=== PATIENT | female | born 1950 | race Caucasian/White ===

== ENCOUNTER → 2016-05-17 | Outpatient (CLI) | payer OTHER ==
[~2016-05-17] MED LIST: ACET-1138 PO; ADVIN10/60 INH; ALBUAER2 INH; ASPEC325 PO; NAPR1TAB9 PO; PRLSR20 PO; TRIA1SPR4 NAE; ULT50X PO; VOLTAREN GEL TOP
--- NOTE | 2016-05-17 12:27 | DIAGNOSTIC IMAGING REPORT ---
CHEST 2 VIEWS ROUTINE CLINICAL HISTORY: R05 [id number] dyspnea COMPARISON STUDY: 06/23/2015 FINDINGS: Unchanging thoracic scoliosis. Lungs are clear. Diaphragms are smooth. No evidence for cardiac enlargement. IMPRESSION: No acute process. Chronic change. Electronically signed by: Bruce Rosas M.D. 05/17/2016 12:25 PM Dictated Date/Time: 05/17/2016 12:25 PM
== END | disposition home or self-care (01) ==
LOC: C.RAD1850 12:08
PROVIDERS: ATTEND Nurse Practitioner
DX: R05 Cough (principal)

== ENCOUNTER → 2016-12-24 | Outpatient (CLI) | payer OTHER ==
[2016-12-24 09:40] LABS: BASO % 0.5 %; BASO ABS # 0.03 K/uL (0-0.2); COMPLETE YES; EOS % 6.4 %; HEMATOCRIT 42.1 % (37-47); LYMPH % 34.9 %; LYMPH ABS # 1.96 K/uL (1.2-3.4); MEAN CELL VOLUME 88.4 fL (80-100); MEAN CORPUSCULAR HEMOGLOBIN 31.1 pg (25-34); MEAN CORPUSCULAR HGB CONC 35.2 g/dl (32-36); MEAN PLATELET VOLUME 10.3 fL (7.4-10.4); MONO % 10.1 %; NEUT % 48.1 %; PLATELET COUNT 284 K/uL (130-400); RED BLOOD COUNT 4.76 M/uL (4.2-5.4); WHITE BLOOD COUNT 5.62 K/uL (4.8-10.8)
[2016-12-24 09:54] LABS: URINE APPEARANCE CLEAR (CLEAR); URINE BILIRUBIN NEG (NEG); URINE COLOR YELLOW; URINE EPITHELIAL CELL AUTO >30 /lpf (0-5); URINE NITRITE NEG (NEG); URINE PH 5.5 (4.5-7.5); URINE SPECIFIC GRAVITY 1.021 (1.000-1.030); UROBILINOGEN NEG (NEG); ZZUR CULT IF INDIC CLEAN CATCH NO
[2016-12-24 09:57] LABS: MANUAL MICROSCOPIC REQUIRED? NO; REVIEW REQ? NO
[2016-12-24 10:07] LABS: BLOOD UREA NITROGEN 18 mg/dl (7-18); BUN/CREATININE RATIO 24.9 (10-20); CALCIUM 9.2 mg/dl (8.5-10.1); CARBON DIOXIDE 27 mmol/L (21-32); CHLORIDE 107 mmol/L (98-107); CREATININE 0.71 mg/dl (0.60-1.20); GLUCOSE 87 mg/dl (70-99); HDL CHOLESTEROL 86 mg/dl; POTASSIUM 3.9 mmol/L (3.5-5.1); SODIUM 139 mmol/L (136-145); TRIGLYCERIDES 75 mg/dl (0-150); VERY LOW DENSITY LIPOPROT CALC 15 mg/dl
[2016-12-24 10:16] LABS: ALB/GLOB RATIO 0.9 (0.9-2); ALKALINE PHOSPHATASE 111 U/L (45-117); ALT/SGPT 22 U/L (12-78); AST/SGOT 16 U/L (15-37); CHOLESTEROL 194 mg/dl (0-200); CHOLESTEROL/HDL RATIO 2.3; LDL CHOLESTEROL CALCULATED 93 mg/dl
== END | disposition home or self-care (01) ==
LOC: C.LAB1850 06:59
PROVIDERS: ATTEND Physician Assistant Medical
DX: R60.9 Edema, unspecified (principal); E05.00 Thyrotoxicosis with diffuse goiter without thyrotoxic crisis or storm

== ENCOUNTER → 2016-12-28 | Outpatient (CLI) | payer OTHER ==
--- NOTE | 2016-12-28 15:16 | MAMMOGRAPHY REPORT ---
BILATERAL DIGITAL SCREENING MAMMOGRAM WITH CAD: 12/28/2016 CLINICAL HISTORY: Routine screening. Patient has no complaints. TECHNIQUE: Bilateral CC and MLO views were obtained. Current study was also evaluated with a Compute r Aided Detection (CAD) system. COMPARISON: Comparison is made to exams dated: 12/23/2015 mammogram, 12/17/2014 mammogram, 12/11/2013 mammogram, 12/03/2011 mammogram, 11/20/2010 mammogram - [facility], and 11/18/2008. BREAST COMPOSITION: The tissue of both breasts is almost entirely fatty. FINDINGS: There are a few benign calcifications bilaterally. No suspicious mass, architectural disto rtion or cluster of suspicious microcalcifications is seen. IMPRESSION: ACR BI-RADS CATEGORY 1: NEGATIVE There is no mammographic evidence of malignancy. A 1 year screening mammogram is recommended. The pa tient will receive written notification of the results. Approximately 10% of breast cancers are not detected with mammography. A negative mammographic report should not delay biopsy if a clinically suggestive mass is present. Stacey Estrada M.D. ay/:12/28/2016 08:04:33 Qc Lab Technician: Leona Laurent RT(R)(M), [facility] letter sent: Normal 1/2 BI-RADS Code: ACR BI-RADS Category 1: Negative
== END | disposition home or self-care (01) ==
LOC: C.MAMM 07:18
PROVIDERS: ATTEND Obstetrics & Gynecology
DX: Z12.31 Encounter for screening mammogram for malignant neoplasm of breast (principal)

== ENCOUNTER → 2017-01-20 | Outpatient (CLI) | payer OTHER | END | disposition home or self-care (01) | LOC: C.LABSPEC 16:57 | PROVIDERS: ATTEND Podiatrist Primary Podiatric Medicine | DX: B35.1 Tinea unguium (principal) ==

== ENCOUNTER 2018-08-28 12:10 | Observation (INO) ==
--- OUTSIDE RECORDS SUMMARY | 2018-08-28 12:13 | External Medical Summary | Continuity of Care Document ---
:1950 Author Name Angel Ahumada, Provider Address Unavailable Unavailable , Care Team Providers Name Role Phone Simon [email or web address] [place] HERNANDEZ Unavailable Unavailable Unavailable Unavailable Unavailable Problems Edema (782.3) (R60.9) Postmenopausal atrophic vaginitis (627.3) (N95.2) Leg cramps (729.82) (R25.2) Anxiety (300.00) (F41.9) Allergic rhinitis (477.9) (J30.9) Asthma (493.90) (J45.909) Gastroesophageal reflux disease (530.81) (K21.9) Abdominal pain, RLQ (right lower quadrant) (789.03) (R10.31) 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 ELEANOR Hennessy Quantity: 30 Refills: 5 Fluticasone-Salmeterol 100-50 MCG/DOSE I nhalation Aerosol Powder Breath Activated; INHALE ONE DOSE BY MOUTH TWICE DAILY RINSE MOUTH AFTER USE CAR Hennessy Start: 01-Nov-2016 Quantity: 1 Refills: 5 Levalbuterol HCl - 1.25 MG/3ML Inhalatio n Nebulization Solution; USE 1 VIAL IN NEBULIZER EVERY 8 HOURS NEEDED. ELEANOR Hennessy Start: 24-Mar-2010 Quantity: 1 3 ML Plas Cont (24 P las Conts) Refills: 1 Nasacort Allergy 24HR AERO Refills: 0 Ventolin HFA 108 (90 Base) MCG/ACT Inhal ation Aerosol Solution; INHALE 1 TO 2 PUFFS EVERY 4 TO 6 HOURS NEEDED. ELEANOR Hennessy Start: 19-Jun-2012 Quantity: 1 18 GM Inhaler Refills: 3 Procedures History of Total Abdominal Hysterectomy With Removal Of Both Status: Completed Ovaries History of Laparoscopy (Diagnostic) Stat us: Completed History of Biopsy Of Cervix Status: Comp leted History of Oral Surgery Tooth Extraction Status: Completed History of Neuroplasty Decompression Median Nerve At Carpal Status: Completed Tunnel History of Foot Surgery Status: Complete d History of Complete Colonoscopy Status: Completed History of Cholecystectomy Status: Compl eted Immunizations Tdap (Adacel) On: 11-Dec-2004 Pneumococcal polysaccharide vaccine, 23 valent On: 2007 Fluzone High-Dose Intramuscular Suspension On: 03-Jan-2015 1 5:44 Lot #: [id number], [employer] PA[employer]UR Zoster (Zostavax) On: 10-Jun-2015 Shingrix 50 MCG Intramuscular Suspension Reconstituted On: Shingrix 50 MCG Intramuscular Suspension Reconstituted On: 11-Jul-2018 Family History uncle Family history of Colon Cancer (V16.0) Status: Active Family history of Aortic Aneurysm Status: Active Grandfather Family history of Colon Cancer (V16.0) Status: Active aunt Family history of Colon Cancer (V16.0) Status: Active Mother Family history of Aortic Aneurysm Status: Active Grandmother Family history of Aortic Aneurysm Status: Active Father Family history of Chronic Obstructive Pulmonary Disease Stat us: Active Sister Family history of Chronic Obstructive Pulmonary Disease Stat us: Active Social History - Smoking Status Unknown if ever smoked Never smoker Plan of Treatment Planned Encounters Appointment; Simon Hernandez M.D. Start: 25-Dec-2018 13:45 Requ est Planned Observations Planned Goals not documented Results No Known Results Results not documented Encounters Appointment; Summer Hennessy PA-C 29-Jun-2018 10:00 Encounter Diagnosis: Problem not documented Appointment; Summer Hennessy PA-C 21-Feb-2018 8:30 Encounter Diagnosis: Problem not documented Appointment; Simon Hernandez M.D. 21-Dec-2017 14:45 Encounter Diagnosis: Problem not documented Appointment; Summer Hennessy PA-C 17-Nov-2017 11:00 Encounter Diagnosis: Problem not documented Appointment; Summer Hennessy PA-C 11-Aug-2017 9:00 Encounter Diagnosis: Problem not documented Appointment; Simon Hernandez M.D. 27-Dec-2016 14:30 Encounter Diagnosis: Problem not documented Appointment; Tuesday, Provider 18-Dec-2016 8:30 Encounter Diagnosis: Problem not documented Appointment; Summer Hennessy PA-C 01-Nov-2016 15:00 Encounter Diagnosis: Problem not documented Appointment; Jackie Velasquez PA-C 04-Oct-2016 9:40 Encounter Diagnosis: Problem not documented Appointment; Simon Hernandez M.D. 09-Sep-2016 13:00 Encounter Diagnosis: Problem not documented Appointment; Summer Hennessy PA-C 06-Sep-2016 13:00 Encounter Diagnosis: Problem not documented Appointment; Simon Hernandez M.D. 25-Dec-2018 13:45 Encounter Diagnosis: Problem not documented
--- NOTE | 2018-08-28 12:56 | XRay Report ---
SINGLE VIEW CHEST CLINICAL HISTORY: Atypical chest pain. FINDINGS: An AP, portable, upright chest radiograph is compared to study dated 05/17/2016. The cardiom ediastinal silhouette is unremarkable noting atherosclerotic calcification of the thoracic aorta. The lungs and pleural spaces are clear. No pneumothorax is seen. The skeletal structures are osteopenic. Degenerative change and scoliosis are noted in the thoracic spine. The bony thorax is grossly intact . IMPRESSION: No active disease in the chest. Electronically signed by: David Mercedes M.D. 08/28/2018 12:54 PM
[2018-08-28 13:11] LABS: Basophils # (auto) 0.03 K/uL (0-0.2); Basophils % (auto) 0.5 %; Eosinophils # (auto) 0.17 K/uL (0-0.5); Hematocrit (blood only) 41.9 % (37-47); Hemoglobin 14.8 g/dL (12.0-16.0); Immature Granulocytes # (auto) 0.01 K/uL (0.00-0.02); Immature Granulocytes % (auto) 0.2 %; Lymphocytes # (auto) 1.71 K/uL (1.2-3.4); Lymphocytes % (auto) 30.6 %; Mean Corpuscular Hgb Conc 35.3 g/dL (32-36); Mean Corpuscular Volume 86.2 fL (80-100); Mean Platelet Volume 10.6 fL (7.4-10.4); Monocytes # (auto) 0.52 K/uL (0.11-0.59); Monocytes % (auto) 9.3 %; Neutrophils # (auto) 3.14 K/uL (1.4-6.5); Neutrophils % (auto) 56.4 %; Platelet Count 264 K/uL (130-400); RDW Coefficient of Variation 12.9 % (11.5-14.5); RDW Standard Deviation 40.9 fL (36.4-46.3); Red Blood Count 4.86 M/uL (4.2-5.4); White Blood Count 5.58 K/uL (4.8-10.8)
[2018-08-28 13:23] LABS: Partial Thromboplastin Time 26.1 Seconds (21.0-31.0); Prothrombin Time 10.4 Seconds (9.0-12.0)
[2018-08-28 13:27] LABS: Alanine Aminotransferase 26 U/L (12-78); Albumin Globulin Ratio 0.9 (0.9-2); Albumin Level 3.7 gm/dl (3.4-5.0); Alkaline Phosphatase 107 U/L (45-117); BUN Creatinine Ratio 15.2 (10-20); Bilirubin,Total 0.6 mg/dl (0.2-1); Blood Urea Nitrogen 14 mg/dl (7-18); Calcium 9.2 mg/dl (8.5-10.1); Carbon Dioxide 24 mmol/L (21-32); Chloride 106 mmol/L (98-107); Creatinine Clr Calc Pharmacy 65.3 ml/min; Est GFR (African American) 76.1; Est GFR (Non-African American) 65.7; Globulin 4.2 gm/dl (2.5-4.0); Glucose 93 mg/dl (70-99); Phosphorus 3.6 mg/dl (2.5-4.9); Sodium 136 mmol/L (136-145); Total Protein 7.9 gm/dl (6.4-8.2); Troponin I < 0.015 ng/ml (0-0.045)
--- NOTE | 2018-08-28 13:47 | Emergency Department Note ---
Entered by Reese Rodriguez acting as a scribe for Capo Palacios MD History of Present Illness General Chief complaint: Chest Pain Stated complaint: chest pain Time Seen by Provider: 08/28/18 12:57 Source: patient History of Present Illness Onset (ago): hour(s) 1 Location: chest Radiation: extremity Pain Consistency: + now resolved Relieved By: + rest Associated symptoms: + diaphoresis and + other (denies nausea) The patient is a 68 year old female who presents to the Emergency Room with complaints of a currently resolved 3-6 minute episode of left-sided chest pain occurring about one hour ago. The patient reports that while setting up for a of someone she did not personally know, she suddenly developed the pain, became diaphoretic, and felt discomfort in her left arm. She did not have any nausea. She reports that her pain resolved after sitting down and trying to relax, and she has not had any symptoms since that time. She denies a history of similar symptoms or anxiety. She does note a history of reflux but states that her symptoms today were different. She denies a history of diabetes, hypertension, or smoking. She states that her mother was a non-smoker and had a heart attack in her 70s as well as hypertension. The patient states that she felt healthy prior to today aside from being tired. She denies recent changes in activity aside from working outside for a short period of time. She states that she had a cardiac stress test in 2015 that was unremarkable. Home Medications Home Medications Medication Instructions Recorded Confirmed Type albuterol sulfate [Ventolin HFA] 2 puff INHALATION Q4H PRN 08/28/18 08/28/18 H istory fluticasone propion-salmeterol 1 puff INHALATION QAM 08/28/18 08/28/18 History [Advair Diskus] omeprazole 20 mg PO QAM 08/28/18 08/28/18 History triamcinolone acetonide [Nasacort] 1 spray INTRANASAL QAM 08/28/18 08/28/18 History Allergies Allergy/AdvReac Type Severity Reaction Status Date / Time levofloxacin Allergy Intermediate double Verified 08/28/18 14:27 vision tetracycline Allergy Intermediate HIVES Verified 08/28/18 14:27 ondansetron [From Zofran] AdvReac Severe Hives Unverified 08/28/18 14:27 codeine AdvReac Mild NAUSEA AND Verified 08/28/18 14:27 VOMITING morphine AdvReac Mild N/V Verified 08/28/18 14:27 oxycodone AdvReac Mild NAUSEA AND Unverified 08/28/18 14:27 VOMITING Past Med/Surg History Medical History Substernal chest pain (Acute) Asthma (Chronic) GERD (gastroesophageal reflux disease) (Chronic) Family History Other Heart disease Hypertension Myocardial infarction Social History Preferred Language: Maori Communication Ability: Effective Golf Course Manager Required: No Beliefs That Will Affect Care: None Current Living Situation: Spouse Other Information That Helps Us Care for You: No Feels Safe at Home: Yes Safety Concerns: Feels Safe At This Time Smoking Status: Never smoker Do You Dip or Chew Tobacco: No Second Hand Exposure: No Tobacco Cessation Education Requested by Patient: No Hx Alcohol Use: Yes Hx Substance Use: No Review of Systems See HPI for pertinent positives & negatives. and A total of 10 systems reviewed and were otherwise negative Physical Exam Vital Signs Vital Signs - 24 hr 08/28/18 12:15 08/28/18 12:29 08/28/18 12:41 Temperature 36.8 C Temperature Source Oral Sepsis Recent Fever Within 48 Hours No Sepsis New/Unexplained Change in Mental Status No Sepsis Action Taken by Nursing No Action Required Pulse Rate 83 Pulse Rate [Apical] 69 Pulse Rate from SpO2 Sensor Respiratory Rate 17 20 Respiratory Effort / Characteristics Non-Labored Non-Labored Spontaneous Respiratory Depth Normal Normal Respiratory Pattern Regular Blood Pressure 121/80 Blood Pressure [Left Arm] 128/77 Blood Pressure Mean 93 Blood Pressure Mean [Left Arm] 94 Blood Pressure Position Sitting Pulse Oximetry 96 95 97 Oxygen Delivery Method Room Air Room Air Room Air 08/28/18 13:01 08/28/18 13:54 Temperature Temperature Source Sepsis Recent Fever Within 48 Hours Sepsis New/Unexplained Change in Mental Status Sepsis Action Taken by Nursing Pulse Rate 66 Pulse Rate [Apical] 65 Pulse Rate from SpO2 Sensor 67 Respiratory Rate 18 18 Respiratory Effort / Characteristics Non-Labored Spontaneous Respiratory Depth Normal Respiratory Pattern Blood Pressure 129/69 Blood Pressure [Left Arm] 118/69 Blood Pressure Mean 89 Blood Pressure Mean [Left Arm] 85 Blood Pressure Position Pulse Oximetry 95 97 Oxygen Delivery Method Room Air Room Air GENERAL: Awake, alert, well-appearing, in no distress HENT: Normocephalic, atraumatic. Oropharynx unremarkable. EYES: Normal conjunctiva. Sclera non-icteric. NECK: Supple. No nuchal rigidity. FROM. No JVD. RESPIRATORY: Clear to auscultation bilaterally. CARDIAC: Regular rate, normal rhythm. Extremities warm and well perfused. Pulses equal. ABDOMEN: Soft, non-distended. No tenderness to palpation. No rebound or guarding. No masses. RECTAL: Deferred. MUSCULOSKELETAL: Chest examination reveals no tenderness. The back is symmetrical on inspection without obvious abnormality. There is no CVA tenderness to palpation. No joint edema. LOWER EXTREMITIES: Calves are equal size bilaterally and non-tender. No edema. No discoloration. NEURO: Normal sensorium. No sensory or motor deficits noted. SKIN: No rash or jaundice noted. Course 1305: The patient was evaluated in room B10. A complete history and physical examination were performed. The patient is at moderate risk with a heart score of 5. 1343: I consulted Dr. Mcdaniel [facility] Hospitalist. The patient will be reevaluated for hospitalization. Administered Medications Acetaminophen (Tylenol) 650 mg PO Q4H PRN PRN Reason: Pain or Fever Stop: 09/27/18 15:10 Last Admin: 08/28/18 16:26 Dose: 650 mg Documented by: [id number] Albuterol (Ventolin Hfa) 2 puffs INH Q4H GREG Stop: 09/27/18 15:29 Last Admin: 08/28/18 19:02 Dose: Not Given Documented by: [id number] Admin: 08/28/18 18:42 Dose: Not Given Documented by: [id number] Enoxaparin Sodium (Lovenox) 40 mg SQ Q24H GREG Stop: 09/27/18 15:59 Last Admin: 08/28/18 16:19 Dose: 40 mg Documented by: [id number] Discontinued Medications Aspirin (Aspirin) 324 mg PO NOW STA Stop: 08/28/18 14:07 Last Admin: 08/28/18 14:30 Dose: 324 mg Documented by: [id number] Medical Decision Making Differential Diagnosis Differential diagnosis includes: cardiac ischemia, aortic dissection, pulmonary embolism, pneumonia, pneumothorax, musculoskeletal, infections, pericarditis, myocarditis, esophageal rupture, gastrointestinal, as well as others were entertained. Medical Records Attestation: I reviewed the patient's medical records. Home Medications Current Medication List: was personally reviewed by me Laboratory Data Attestation: I reviewed the patient's lab results. Result diagrams: 08/28/18 12:25 08/28/18 13:30 Lab Results 08/28/18 08/28/18 08/28/18 Range/Units 12:25 12:25 12:25 WBC 5.58 (4.8-10.8) K/uL RBC 4.86 (4.2-5.4) M/uL Hgb 14.8 (12.0-16.0) g/dL Hct 41.9 (37-47) % MCV 86.2 (80-100) fL MCH 30.5 (25-34) pg MCHC 35.3 (32-36) g/dL RDW Std Deviation 40.9 (36.4-46.3) fL RDW Coeff of Gopi 12.9 (11.5-14.5) % Plt Count 264 (130-400) K/uL MPV 10.6 H (7.4-10.4) fL Immature Gran % (Auto) 0.2 % Neut % (Auto) 56.4 % Lymph % (Auto) 30.6 % Stoddard % (Auto) 9.3 % Eos % (Auto) 3.0 % Baso % (Auto) 0.5 % Immature Gran # (Auto) 0.01 (0.00-0.02) K/uL Neut # (Auto) 3.14 (1.4-6.5) K/uL Lymph # (Auto) 1.71 (1.2-3.4) K/uL Stoddard # (Auto) 0.52 (0.11-0.59) K/uL Eos # (Auto) 0.17 (0-0.5) K/uL Baso # (Auto) 0.03 (0-0.2) K/uL PT 10.4 (9.0-12.0) Seconds INR 1.0 (0.9-1.1) APTT 26.1 (21.0-31.0) Seconds PTT Ratio 1.0 Sodium 136 (136-145) mmol/L Potassium (3.5-5.1) mmol/L Chloride 106 (98-107) mmol/L Carbon Dioxide 24 (21-32) mmol/L Anion Gap 6.0 (3-11) BUN 14 (7-18) mg/dl Creatinine 0.90 (0.6-1.2) mg/dl Est Cr Clr Drug Dosing 65.3 ml/min Est GFR ( Amer) 76.1 Est GFR (Non-Af Amer) 65.7 BUN/Creatinine Ratio 15.2 (10-20) Glucose 93 (70-99) mg/dl Calcium 9.2 (8.5-10.1) mg/dl Phosphorus 3.6 (2.5-4.9) mg/dl Magnesium (1.8-2.4) mg/dl Total Bilirubin 0.6 (0.2-1) mg/dl AST (15-37) U/L ALT 26 (12-78) U/L Alkaline Phosphatase 107 (45-117) U/L Troponin I < 0.015 (0-0.045) ng/ml Total Protein 7.9 (6.4-8.2) gm/dl Albumin 3.7 (3.4-5.0) gm/dl Globulin 4.2 H (2.5-4.0) gm/dl Albumin/Globulin Ratio 0.9 (0.9-2) 08/28/18 Range/Units 13:30 WBC (4.8-10.8) K/uL RBC (4.2-5.4) M/uL Hgb (12.0-16.0) g/dL Hct (37-47) % MCV (80-100) fL MCH (25-34) pg MCHC (32-36) g/dL RDW Std Deviation (36.4-46.3) fL RDW Coeff of Gopi (11.5-14.5) % Plt Count (130-400) K/uL MPV (7.4-10.4) fL Immature Gran % (Auto) % Neut % (Auto) % Lymph % (Auto) % Stoddard % (Auto) % Eos % (Auto) % Baso % (Auto) % Immature Gran # (Auto) (0.00-0.02) K/uL Neut # (Auto) (1.4-6.5) K/uL Lymph # (Auto) (1.2-3.4) K/uL Stoddard # (Auto) (0.11-0.59) K/uL Eos # (Auto) (0-0.5) K/uL Baso # (Auto) (0-0.2) K/uL PT (9.0-12.0) Seconds INR (0.9-1.1) APTT (21.0-31.0) Seconds PTT Ratio Sodium (136-145) mmol/L Potassium 4.0 (3.5-5.1) mmol/L Chloride (98-107) mmol/L Carbon Dioxide (21-32) mmol/L Anion Gap (3-11) BUN (7-18) mg/dl Creatinine (0.6-1.2) mg/dl Est Cr Clr Drug Dosing ml/min Est GFR ( Amer) Est GFR (Non-Af Amer) BUN/Creatinine Ratio (10-20) Glucose (70-99) mg/dl Calcium (8.5-10.1) mg/dl Phosphorus (2.5-4.9) mg/dl Magnesium 2.2 (1.8-2.4) mg/dl Total Bilirubin (0.2-1) mg/dl AST 17 (15-37) U/L ALT (12-78) U/L Alkaline Phosphatase (45-117) U/L Troponin I (0-0.045) ng/ml Total Protein (6.4-8.2) gm/dl Albumin (3.4-5.0) gm/dl Globulin (2.5-4.0) gm/dl Albumin/Globulin Ratio (0.9-2) Imaging Data Radiologist's Impression: Radiology results as stated below per my review and the radiologist's interpretation: SINGLE VIEW CHEST CLINICAL HISTORY: Atypical chest pain. FINDINGS: An AP, portable, upright chest radiograph is compared to study dated 05/17/2016. The cardiomediastinal silhouette is unremarkable noting atherosclero tic calcification of the thoracic aorta. The lungs and pleural spaces are clear. No pneumothorax is seen. The skeletal structures are osteopenic. Degenerative change and scoliosis are noted in the thoracic spine. The bony thorax is grossly intact. IMPRESSION: No active disease in the chest. Electronically signed by: David Mercedes M.D. 08/28/2018 12:54 PM ECG Data Attestation: I personally reviewed and interpreted this ECG as follows: Indication: chest pain Rate (beats per minute): 80 Rhythm: normal sinus (with SA) Findings: + other (normal axis); no ST depression and no ST elevation Blood Pressure Blood Pressure Findings: Normal blood pressure Blood Pressure Disposition: did not require urgent referral MDM Narrative The patient is a pleasant 68-year-old woman with a past medical history of reflux and asthma who presents emergency department with acute onset substernal chest pain with sweating that occurred around noon today in the setting of moving around chairs helping her quaker prepare for a service per hpi. She denies any recent similar symptoms or progressive exertional symptoms to suggest angina at this time. She was admitted several years ago for palpitations and did have a negative stress echo at that time. On arrival patient is no acute distress, afebrile stable vital signs. EKG is unremarkable without evidence of overt acute ischemia. Chest x-ray is negative. WBC, H/H, platelets wnl. Chemistry without acidosis. LFTs and electrolytes unremarkable. Initial troponin negative. Heart score 5, moderate risk. Reasonable to admit the patient for further cardiac evaluation. Case discussed with Dr. Mcdaniel, [facility] hospitalist, who evaluate the patient for admission. Impression & Plan Substernal chest pain Discharge Plan Visit Data *Final* Discharge Date/Time: 08/28/18 14:25 Chief Complaint: Chest Pain Stated Complaint: chest pain ED Provider: Capo Palacios Discharge Problem: Substernal chest pain Patient Disposition: Admitted As Inpatient Discharge Instructions Interventions: ED Discharge Assessment Last Done: 08/28/18 14:25 The scribe's documentation has been prepared under my direction and personally reviewed by me in its entirety. I confirm that the note above accurately reflects all work, treatment, procedures, and medical decision making performed by me.
[2018-08-28 13:56] LABS: Magnesium 2.2 mg/dl (1.8-2.4)
[2018-08-28] MEDS ORDERED: ASPIRIN CHEW 324 MG PO STA (14:06)
--- NOTE | 2018-08-28 14:15 | History & Physical Report ---
Date of Service August 28, 2018 Assessment & Plan (1) Substernal chest pain: Occurred with exertion. Resolved with rest. Observation with telemetry. Continue aspirin therapy. You sublethal nitroglycerin as needed. Serial troponins. Cardiac echo. Cardiology consultation Present on Admission?: Yes (2) Asthma: Currently stable. Continue inhaler therapy Present on Admission?: Yes (3) GERD (gastroesophageal reflux disease): Treated with omeprazole (4) DVT prophylaxis: Lovenox subcu History of Present Illness Chief Complaint: Exertional chest discomfort and diaphoresis Primary Care Provider: Simon Hernandez MD 68-year-old female with no previous history of cardiac disease. She was moving chairs around today when she developed diffuse anterior chest pressure associated with diaphoresis. The symptoms also radiated to the left arm. She denies shortness of breath. She was brought to the ED by a family member and her symptoms resolved while in the ED. Troponin is normal. EKG unremarkable. She will be placed in observation status for further assessment. Aspirin has been administered in the ED and will be continued. She uses inhalers for asthma control and takes omeprazole for GERD. Again, she has no previous cardiac history Allergies Allergy/AdvReac Type Severity Reaction Status Date / Time levofloxacin Allergy Intermediate double Verified 02/17/16 08:39 vision tetracycline Allergy Intermediate HIVES Verified 02/17/16 08:39 codeine AdvReac Mild NAUSEA AND Verified 02/17/16 08:39 VOMITING morphine AdvReac Mild N/V Verified 02/17/16 08:39 oxycodone AdvReac Mild NAUSEA AND Unverified 02/17/16 08:39 VOMITING Home Medications Home Medications Medication Instructions Recorded Confirmed Type Albuterol (Ventolin) 2 puff INHALATION Q4 PRN 5 Days #0 06/23/15 History inhaler OMEPRAZOLE (PRILOSEC) 20 mg PO QAM #0 cap 06/23/15 History FLUTICASONE PROP/SALMETEROL 1 puff INHALATION BID PRN #0 01/16/16 History (Advair Diskus 100/50 60 Dose) inhaler Naproxen (Aleve) 220 mg PO BID PRN #0 tab 01/16/16 History Triamcinolone Acetonide (Nasal 1 spray SONU QAM #0 01/16/16 History (Nasacort Allergy 24Hr) VOLTAREN GEL 1 dose TOPICAL PRN #0 01/16/16 History Acetaminophen (Tylenol Extra 1,000 mg PO Q8H 30 Days #180 tab 02/18/16 Rx Strength) Aspirin 325 mg PO BID 45 Days #90 02/18/16 Rx Tramadol HCl 50 - 100 mg PO Q4H PRN 30 Days #60 02/18/16 Rx tab Past Med/Surg History Medical History Substernal chest pain (Acute) Asthma (Chronic) GERD (gastroesophageal reflux disease) (Chronic) Social History Preferred Language: Armenian Feels Safe at Home: Yes Smoking Status: Never smoker Review of Systems Review of Systems: Constitutional-no fever or chills ENT-no blurred vision, no double vision, no epistaxis, no sore throat Respiratory-no cough, no wheezing, no shortness of breath Cardiac-no palpitations, no syncope. Chest discomfort today as described above GI-no nausea, vomiting, diarrhea, melena, hematochezia -no urinary retention, no urinary incontinence, no dysuria, no hematuria Musculoskeletal-no joint pain, no muscle tenderness Skin-no bruising, no rashes, no pruritus Neuro-no isolated weakness, no paresthesia, no weakness Psych-no depression, no anxiety Physical Exam Physical Exam: General-alert and oriented x3, no fevers, no chills HEENT-head atraumatic and normocephalic, TMs intact bilaterally, pupils equal and reactive to light, extraocular muscles intact Neck-no lymphadenopathy or thyromegaly, trachea midline Chest-clear to auscultation percussion. No rales wheezing or rhonchi Cardiac-regular rate and rhythm, normal S1 and S2, no murmurs Abdomen-normal bowel sounds, nontender, no hepatosplenomegaly Extremities-no cyanosis, clubbing, or edema Neuro-cranial nerves II through XII intact, motor and sensory function within normal limits, strength symmetrical 5/5, no focal deficits Psych-normal affect, normal mood Results & Data Vital Signs (Past 12 Hours) Vital Signs Temp Pulse Pulse Resp BP BP Pulse Ox 08/28/18 13:54 65 18 118/69 97 08/28/18 13:01 66 18 129/69 95 08/28/18 12:41 69 20 128/77 97 08/28/18 12:29 95 08/28/18 12:15 36.8 C 83 17 121/80 96 Laboratory Results 08/28/18 12:25 08/28/18 13:30 PG Care Time/CCT Total # of Minutes Spent Total Time Spent with Patient: Total time spent is greater than 50% in coordination of care (as documented) at patient's floor/unit and/or counseling patient:
[2018-08-28] MEDS ORDERED: ALUMINUM/MAGNESIUM SUSP 30 ML UDC PO PRN (15:11)
[2018-08-28] MEDS ORDERED: ACETAMINOPHEN 325 MG TAB PO PRN (15:11)
[2018-08-28] MEDS ORDERED: NITROGLYCERIN SL 0.4 MG/TAB TAB SL PRN (15:11)
[2018-08-28] MEDS ORDERED: ZOLPIDEM TARTRATE 5 MG TAB PO PRN (15:11)
[2018-08-28] MEDS ORDERED: ONDANSETRON INJ 2 MG/ML 2 ML VIAL IV PRN (15:11)
[2018-08-28] MEDS ORDERED: ENOXAPARIN INJ 40 MG/0.4 ML SYR SQ SCH (16:00)
[2018-08-28] MEDS: ALBUTEROL HFA 8 GM INHALER INH SCH ×3 (18:42→23:40)
[2018-08-28] MEDS: FLUTICASONE/SALMETEROL 100/50 (ADVAIR) 14 PUFF/1 INHALER INH SCH (21:01)
[2018-08-29] MEDS: ALBUTEROL HFA 8 GM INHALER INH SCH ×3 (03:01→11:47)
[2018-08-29] MEDS ORDERED: PANTOprazole 40 MG TAB PO SCH (09:00)
[2018-08-29] MEDS ORDERED: ASPIRIN 325 MG ECTAB PO SCH (09:00)
[2018-08-29] MEDS ORDERED: TRIAMCINOLONE ACET NASAL SPRAY 10.8ML BTL NAE SCH (09:00)
--- NOTE | 2018-08-29 09:00 | Cardiology Consultation ---
Date of Consultation August 29, 2018 Assessment & Plan (1) Substernal chest pain: * Single brief (3-5 minute) episode of pressing substernal chest pain * Negative troponins x3 * Normal EKG on admission * On telemetry since with no abnormalities detected. * No other symptoms but history of exercise intolerance in the recent past with diaphoresis * Echo performed earlier this morning, still pending * Will review echo and may be worth having stress testing performed outpatient vs inpatient but hopefully able to be discharged today. Supervising Physician Co-Signing Physician Notes Patient seen and examined. Agree with Dr. Lucero's assessment and plan. We will perform a stress echocardiogram today. History of Present Illness Reason for Consultation: Chest pain "felt like someone was pressing on my chest" with left arm radiation and diaphoresis Attending Physician: Gerber Iverson, DO History of Present Illness Estrella Hickman is a 68 year old woman with a medical history of asthma and GERD on albuterol, advair and omeprazole at home. She is here for evaluation of a single episode of substernal chest pain and pressure. She has no significant cardiovascular history or major risk factors (No stroke, TIA, DE, other heart disease, hypertension, DMII, or smoking though she does have a BMI of 31). 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 She was just about finished laying out food and not feeling fatigued or short of breath in the least when she started to experience chest pain which she described as a substernal pressure that also started to move down her left arm. She sat down and became aware about a minute later that she had become very sweaty and called her to take her to the emergency department. After about 3-5 minutes of sitting down and before she got to the emergency department she said her symptoms completely resolved. She did not have any other associated symptoms did has not had any recurrent symptoms since. She has never had anything like this before, but she has been trying to walk more for exercise with her and noticed that she had a great amount of difficulty walking one day and had markedly reduced exercise tolerance becoming short of breath and diaphoretic though she had no chest pain at that time. On presentation to the emergency department Ms. Hickman said she has continued to feel in her usual state of health. Troponin at admission was negative and serial troponins have been negative x3. She has a family history of heart disease with her mother having an DE at 73 years old. Allergies Allergy/AdvReac Type Severity Reaction Status Date / Time levofloxacin Allergy Intermediate double Verified 08/28/18 14:27 vision tetracycline Allergy Intermediate HIVES Verified 08/28/18 14:27 ondansetron [From Zofran] AdvReac Severe Hives Unverified 08/28/18 14:27 codeine AdvReac Mild NAUSEA AND Verified 08/28/18 14:27 VOMITING morphine AdvReac Mild N/V Verified 08/28/18 14:27 oxycodone AdvReac Mild NAUSEA AND Unverified 08/28/18 14:27 VOMITING Home Medications Home Medications Medication Instructions Recorded Confirmed Type albuterol sulfate [Ventolin HFA] 2 puff INHALATION Q4H PRN 08/28/18 08/28/18 History fluticasone propion-salmeterol 1 puff INHALATION QAM 08/28/18 08/28/18 History [Advair Diskus] omeprazole 20 mg PO QAM 08/28/18 08/28/18 History triamcinolone acetonide [Nasacort] 1 spray INTRANASAL QAM 08/28/18 08/28/18 History nitroglycerin 0.4 mg SUBLINGUAL Q5M PRN #10 tab 08/29/18 Rx Patient History Medical History Substernal chest pain (Acute) Asthma (Chronic) GERD (gastroesophageal reflux disease) (Chronic) Family History Other Heart disease Hypertension Myocardial infarction Social History Preferred Language: Azeri Communication Ability: Effective Rn Care Transition Required: No Beliefs That Will Affect Care: None Current Living Situation: Spouse Other Information That Helps Us Care for You: No Feels Safe at Home: Yes Safety Concerns: Feels Safe At This Time Smoking Status: Never smoker Do You Dip or Chew Tobacco: No Second Hand Exposure: No Tobacco Cessation Education Requested by Patient: No Hx Alcohol Use: Yes Hx Substance Use: No Review of Systems Constitutional: as per Subjective / HPI; no fever, no sweats, no fatigue and no weakness Eyes: no problem reported Respiratory: no cough, no dyspnea, no dyspnea on exertion, no pain on inspiration and no wheezing Cardiovascular: no chest pain, no radiating jaw, neck or arm pain, no dyspnea, no dyspnea on exertion, no palpitations and no edema Gastrointestinal: no abdominal pain, no nausea and no vomiting Neurologic: no falls, no dizziness and no syncope Physical Exam Constitutional: no acute distress, not ill appearing and no altered mental status Respiratory: normal respiratory effort, lungs clear to auscultation Cardiovascular: Rate/Rhythm: regular rate and regular rhythm Heart Sounds: no click, no gallop, no murmur and no cardiac rub Vessels: normal peripheral pulses (bilaterally) and dorsalis pedis pulses present (bilaterally) Extremities: no calf tenderness and no pedal edema Gastrointestinal (Abdomen): normal bowel sounds, soft, nontender, no hepatosplenomegaly Musculoskeletal: no cyanosis or clubbing, extremities motor strength 5/5 Skin: no rashes, warm and dry Psychiatric: A+Ox3, euthymic affect Mood: no anxious mood Insight: good insight Judgement: good judgement Results & Data Vital Signs (Past 12 Hours) Vital Signs Temp Pulse Resp BP BP Pulse Ox 08/29/18 07:07 36.8 C 61 18 114/71 96 08/29/18 04:35 36.6 C 57 L 18 117/71 94 08/28/18 23:59 36.5 C 57 L 16 113/70 96 Resident Activity Tracking Resident Involvement: Resident Care Provided Care Provided: Adult Hospital Medicine
[2018-08-29] MEDS ORDERED: PERFLUTREN LIPID MICROSPHERE (DEFINITY) IV ONE (10:41)
[2018-08-29] MEDS: FLUTICASONE/SALMETEROL 100/50 (ADVAIR) 14 PUFF/1 INHALER INH SCH (11:47)
--- NOTE | 2018-08-29 13:15 | Discharge Summary ---
Date of Service August 29, 2018 Admission HPI Per Admitting Provider 68-year-old female with no previous history of cardiac disease. She was moving chairs around today when she developed diffuse anterior chest pressure associated with diaphoresis. The symptoms also radiated to the left arm. She denies shortness of breath. She was brought to the ED by a family member and her symptoms resolved while in the ED. Troponin is normal. EKG unremarkable. She will be placed in observation status for further assessment. Aspirin has been administered in the ED and will be continued. She uses inhalers for asthma control and takes omeprazole for GERD. Again, she has no previous cardiac history Principal Diagnosis Chest Pain Discharge Exam Constitutional WD/WN, vitals as above Eyes + anicteric sclerae ENMT Ears: no hearing impairment Neck normal visual inspection and trachea midline Respiratory normal respiratory effort, lungs clear to auscultation Cardiovascular RRR, no murmur, no edema Chest (Breasts) Additional Comments: no tenderness to palpation along sternum Gastrointestinal (Abdomen) Inspection/Auscultation: normal bowel sounds Percussion/Palpation: abdomen soft; abdomen nontender Musculoskeletal no cyanosis or clubbing, extremities motor strength 5/5 Skin no rashes, warm and dry Neurologic moves all extremities Psychiatric A+Ox3, euthymic affect Discharge Data Allergies Allergy/AdvReac Type Severity Reaction Status Date / Time levofloxacin Allergy Intermediate double Verified 08/28/18 14:27 vision tetracycline Allergy Intermediate HIVES Verified 08/28/18 14:27 ondansetron [From Zofran] AdvReac Severe Hives Unverified 08/28/18 14:27 codeine AdvReac Mild NAUSEA AND Verified 08/28/18 14:27 VOMITING morphine AdvReac Mild N/V Verified 08/28/18 14:27 oxycodone AdvReac Mild NAUSEA AND Unverified 08/28/18 14:27 VOMITING Consultations 08/28/18 13:38 ED Decision to Admit Stat 08/28/18 15:11 Consult Cardiology Routine Hospital Course (1) Substernal chest pain: - Occurred with exertion and resolved with rest - no clear etiology of cause and no significant cardiac history - Serial troponins negative; Sinus rhythm on monitor; Echo reveals EF 65-70% with no regional wall motion abnormalities; stress echo was negative for ischemic findings - Rx provided for PRN NTG if symptoms should reoccur - Cardiology was consulted - no further interventions needed at this time (2) Asthma: - Stable - no current exacerbation; continue inhalers (3) GERD (gastroesophageal reflux disease): - Continue Omeprazole Total Time Total Time Spent Total Time Spent (In Minutes): Greater than 30 minutes Discharge Plan Discharge Items Patient Disposition: Home - Self-Care Reason For Visit: chest pain Discharge Diagnosis: Chest Pain Condition: Good Discharge Goals: Decrease discomfort, Improve disease control and Prevent disease Activity: Resume your previous activity Non-emergency contact: Primary Care Provider Call non-emergency contact if: you have any medication questions, your symptoms worsen and you have a fever Follow-up/Referrals: Simon Hernandez MD [Primary Care Provider] - 09/05/18 3:30 pm (follow up appointment with your primary care phyisican) Diet: Regular Addtl Provider Instructions: Chest Pain: - Thankfully your heart looks great. Your cardiac markers (troponins) were negative which tests for heart damage caused by ischemia (lack of oxygen to heart muscle). Your ultrasound of the heart and stress test did not reveal changes to suggest a cardiac issue or issues with blood flow to the heart muscle. - Unfortunately we don't have an actual reason for the pain. Sometimes similar pains can be caused by the chest wall muscles, esophageal spasms, dehydration, or sometimes we just don't find an answer. - If this pain would come back would recommend to stop your activity and rest. With chest pains we do recommend to get them checked out to make sure it is nothing heart related. - Some things you can do to reduce your risk of heart disease is to stay active, eat a healthy well-balanced diet; have your blood pressures and cholesterol checked to make sure these stay in a good range; and avoid cigarette smoking or cigarette exposures. Prescriptions: New nitroglycerin 0.4 mg tablet, sublingual 0.4 mg sublingual Q5M PRN (Reason: chest pain) Qty: 10 RF: 0 Continued triamcinolone acetonide [Nasacort] 55 mcg Aerosol,[place] 1 spray INTRANASAL QAM RF: 0 omeprazole 20 mg capsule,delayed release(DR/EC) 20 mg PO QAM RF: 0 fluticasone propion-salmeterol [Advair Diskus] 100-50 mcg/dose blister with device 1 puff inhalation QAM RF: 0 albuterol sulfate [Ventolin HFA] 90 mcg/actuation HFA aerosol inhaler 2 puff inhalation Q4H PRN (Reason: Shortness Of Breath Or Wheezing) RF: 0 Stand-Alone Forms: Call Back Authorization, My [facility] Discharge Orders: Discharge Order (Routine); Ordered 08/29/18 Ordered By: Nisha Costello Admission Data Admit Date/Time: 08/28/18 14:13 Attending Provider: Gerber Iverson Admit Provider: Gallo Mcdaniel Primary Care Provider: Simon Hernandez Other Providers: Gallo Mcdaniel ; Sherman Cross ; Jerry Grace ; Robinson Hughes ; Davy Morrison ; Luis Rao Jr ; Anjel Conway ; Francie Kowalski ; Stacey Pruitt ; Grey Freeman ; Grey Sewell ; Panda Goins ; Gallo Moran ; Marii Song ; Elinor Armstrong Service: Telemetry Other Interventions: Discharge Summary Assessment (RN) Last Done: 08/29/18 11:44 Pending Studies at Discharge: No DC Date/Time DO NOT enter until pt leaves facility: 08/29/18 12:28 Supervising Physician Co-Signing Physician Notes Attending note: patient seen and examined with Nisha Costello PA-C. I agree with her discharge summary. - Single episode of chest pain with diaphoresis Patient without any further episodes of chest pain and diaphoresis. Discussed that it is unclear what caused her symptoms. Highly unlikely related to heart given the negative troponin x 3, normal EKG and negative stress echo. discussed that it could be esophageal spasm. offered prescription for SL Nitro to try if she has symptoms. follow up with PCP if symptoms return/persist
== END 2018-08-29 12:28 | disposition home or self-care (01) ==
LOC: 2S 12:10 → ED 12:10 → SUATTDRO 14:13 → 2S 14:25